=== PATIENT | female | born 1950 | race Caucasian/White ===

== ENCOUNTER 2017-03-27 15:56 | Outpatient (CLI) | payer OTHER ==
--- NOTE | 2017-03-27 18:10 | DIAGNOSTIC IMAGING REPORT ---
PROCEDURE: DEXA BONE DENSITY STUDY CLINICAL INDICATION: CHRONIC BACK PAIN COMPARISON: DEXA dated the 04/14/2015 FINDINGS: LUMBAR SPINE: Bone mineral density 0.641 g/cm2, T score -3.7 osteoporosis which represents a of 3.8% decrease from the previous study LEFT HIP: Bone mineral density 0.263 g/cm2, T score -5.6 osteoporosis which represents 7.7% decrease from the previous study LEFT FEMORAL NECK: Bone mineral density 0.283 g/cm2, T score -5.1 osteoporosis which represents a 12.1% decrease in bone mineral density since the previous study FRACTURE RISK CALCULATION ( when applicable): 10-year fracture risk of a major osteoporotic fracture and of a hip fracture not reported because of a prior hip or vertebral fracture and the patient is being treated for osteoporosis. (T score greater or equal to -1.0 to: NORMAL) (T score from -1.1 to -2.4: OSTEOPENIA) (T score ess than or equal to -2.5: OSTEOPOROSIS) IMPRESSION: 1. 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
== END 2017-03-27 23:00 ==
LOC: XR SRH 15:56
DX: N91.2 Amenorrhea, unspecified (principal); M81.8 Other osteoporosis without current pathological fracture